=== PATIENT | male | born 1970 | race Caucasian/White ===

== ENCOUNTER 2020-08-02 23:11 | Emergency (ER) | payer BC ==
[~2020-08-02] VITALS: Ht 180.3 cm; Wt 95.3 kg
[~2020-08-02 23:11] MED LIST: NORCO 5-325 TA1 EACH PO; [UNRECOGNIZED DRUG - OTHER] OP
[2020-08-03 01:57] LABS: HEMOGLOBIN 6.6 gm/dL (14.0-18.0); MCH 20.3 pg (26.0-34.0); RBC 3.27 mil/uL (4.50-6.00)
[2020-08-03 01:59] LABS: URINE BILIRUBIN NEGATIVE (Negative); URINE BLOOD NEGATIVE (Negative); URINE CLARITY CLEAR; URINE COLOR YELLOW; URINE GLUCOSE-RANDOM* NEGATIVE (Negative); URINE KETONES NEGATIVE (Negative); URINE LEUKOCYTES-REFLEX NEGATIVE (Negative); URINE NITRITE-REFLEX NEGATIVE (Negative); URINE PROTEIN (DIPSTICK) NEGATIVE (Negative); URINE SPECIFIC GRAVITY >= 1.030 (1.005-1.035); URINE UROBILINOGEN 0.2 E.U./dl (0.2-1.0)
[2020-08-03 01:59] LABS: ABSOLUTE NEUTROPHILS 4.6 thou/uL (1.4-8.2); BASOPHILS 0.7 % (0.0-2.0); HEMATOCRIT 22.7 % (42.0-52.0); LYMPHOCYTES 15.2 % (24.0-44.0); MCHC 29.2 g/dL (28.0-37.0); MCV 69.4 fL (80.0-100.0); MONOCYTES 4.8 % (1.0-8.0); PLATELET COUNT 265 thou/uL (150-400); POLYS 77.3 % (36.0-66.0); RDW 16.9 % (10.5-14.5); WBC 5.9 thou/uL (4.0-11.0)
[2020-08-03 02:05] LABS: ANION GAP 8 mmol/L (7-16); BUN 15 mg/dL (7-18); CALCIUM 8.9 mg/dL (8.5-10.1); CHLORIDE 102 mmol/L (98-107); CO2 26 mmol/L (21-32); CREATININE 1.1 mg/dL (0.7-1.3); GLUCOSE 124 mg/dL (74-106); POTASSIUM 3.8 mmol/L (3.5-5.1); SODIUM 136 mmol/L (136-145)
[2020-08-03 02:17] LABS: ALBUMIN 3.7 g/dL (3.4-5.0); DIRECT BILIRUBIN < 0.1 mg/dL (<0.1-0.2); LIPASE 99 U/L (73-393); SGOT 16 U/L (15-37); SGPT 37 U/L (30-65); TOTAL BILIRUBIN 0.3 mg/dL (0.2-1.0); TOTAL PROTEIN 6.9 g/dL (6.4-8.2); TROPONIN-I <0.06 ng/mL (<0.06)
[2020-08-03 02:56] LABS: % SATURATION 2 % (20-39); IRON 11 ug/dL (65-175); TIBC 530 ug/dL (250-450)
[2020-08-03 07:15] LABS: HEMOGLOBIN 6.5 gm/dL (14.0-18.0)
[2020-08-03 07:16] LABS: HEMATOCRIT 22.5 % (42.0-52.0)
[2020-08-03 12:00] VITALS: BP 120/67
--- NOTE | 2020-08-03 15:06 | EKG ---
[place] [address] [employer] [place] [address] ELECTROCARDIOGRAM REPORT Name: JAMESBAIRON Room #: DEP Wander#: [id number] Admission: 08/02/20 Attend Phys: Discharge: 08/03/20 Date of : 68 Report #: [id number] [facility] ED Test Date: 2020-08-02 Test Time: 23:14:50 Pat Name: BAIRON RAMIREZ Department: Room: Gender: M Software Application Tester: : 1970 Requested By: Rhys Jimenez Order Number: [id number] MD: Byron Hodge Measurements Intervals [place] Rate: 77 P: 36 MD: 158 QRS: 47 QRSD: 105 T: 30 QT: 411 QTc: 466 Interpretive Statements Sinus rhythm Abnormal R-wave progression, early transition Compared to ECG 09/29/2006 06:39:53 Myocardial infarct finding no longer present Electronically Signed On 08-03-2020 15:05:54 CLINICAL SUPPORT NURSE by Byron Hodge [email or web address] <ELECTRONICALLY SIGNED> By: Byron Hodge MD, [facility] 08/03/20 1505 2314 2314 Byron Hodge MD, FACC /EPI
== END 2020-08-03 12:00 | disposition short-term general hospital (02) ==
LOC: ER 23:11
PROVIDERS: Emergency Medicine
DX: D64.89 Other specified anemias (principal); F17.210 Nicotine dependence, cigarettes, uncomplicated; Z79.899 Other long term (current) drug therapy